=== PATIENT | female | born 1990 | race Asian ===

== ENCOUNTER 2016-05-01 23:57 | Emergency (ER) | payer OTHER ==
[2016-05-02] MEDS ORDERED: Ondansetron INJ* 2 MG/ML VIAL IV ONE (00:30)
[2016-05-02] MEDS ORDERED: NS 0.9% 1000 ML* 1,000 ML IV ONE (00:30)
[2016-05-02] MEDS ORDERED: Al Hydrox/Mg Hydrox/Simet LIQ* 30 ML UDC PO ONE (00:31)
[2016-05-02] MEDS ORDERED: Lidocaine 2% VISCOUS* 15 ML UDC PO ONE (00:31)
[2016-05-02 01:22] LABS: Hematocrit 44 % (35-47); Hemoglobin 14.5 g/dl (12.0-16.0); Mean Corpuscular HGB Conc 33 g/dl (31-36); Mean Corpuscular Hemoglobin 29 pg (27-31); Mean Corpuscular Volume 88 fL (80-97); Mean Platelet Volume 9 um3 (7.4-10.4); Red Blood Count 5.02 10^6/ul (4.0-5.4); Red Cell Distribution Width 13 % (10.5-15); White Blood Count 19.6 10^3/ul (3.5-10.8)
[2016-05-02 01:34] LABS: ALT 22 U/L (7-52); AST 16 U/L (13-39); Albumin 4.5 g/dL (3.2-5.2); Alkaline Phosphatase 43 U/L (34-104); Anion Gap 9 mmol/L (2-11); BUN/Creatinine Ratio 25.9 (8-20); Blood Urea Nitrogen 15 mg/dL (6-24); C Reactive Protein 4.84 mg/L (< 5.00); CO2 Carbon Dioxide 25 mmol/L (22-32); Calcium 9.3 mg/dL (8.6-10.3); Chloride 102 mmol/L (101-111); EGFR African American 160.4 (>60); EGFR Non-African American 124.7 (>60); Globulin 3.2 g/dL (2-4); Glucose 133 mg/dL (70-100); Lipase 25 U/L (11.0-82.0); Potassium 3.8 mmol/L (3.5-5.0); Sodium 136 mmol/L (133-145); Total Protein 7.7 g/dL (6.4-8.9)
--- NOTE | 2016-05-02 01:58 | ED ---
Andrew Johnston Anna, scribed for Alisa Jaffe MD on 05/02/16 at 0051 . Abdominal Pain/Female - HPI Summary HPI Summary: Patient is a 25 y/o female coming to [facility] presenting with intermittent burning epigastric abdominal pain that began at 1830. She ate rice, tofu, and beans at 12:40. Slept from 1400 to 1830, when she awoke with the pain and experienced emesis 4 times. The pain radiates up to her chest. She took an antacid, which did not relieve her symptoms and vomited again. She has additionally experienced nausea, loss of appetite, BOYD (baseline for this season), and dizziness (baseline for this season). Denies fever, chills, diarrhea, constipation, or blood in vomit. She describes the severity of the pain as 7/10 currently, peaking at 9/10. She describes the pain as similar to when she has been heavily drinking, which she only does rarely and has not done in months. No known exposure to anyone sick. Doesnt drink caffeine or regularly take ibuprofen. - History of Current Complaint Chief Complaint: EDAbdPain Stated Complaint: VOMITING/UPSET STOMACH Time Seen by Provider: 05/02/16 00:17 Hx Obtained From: Patient Pain Intensity: 6 Allergies/Adverse Reactions: Allergies Allergy/AdvReac Type Severity Reaction Status Date / Time No Known Allergies Allergy Verified 05/02/16 00:02 PMH/Surg Hx/FS Hx/Imm Hx Previously Healthy: Yes Infectious Disease History: No Infectious Disease History: Reports: Traveled Outside the [place] in Last 30 Days - [place] - Family History Known Family History: Positive: Cardiac Disease - Mother, Diabetes - Father - Social History Occupation: Student - Graduate Lives: Alone Alcohol Use: Rare Hx Substance Use: No Hx Tobacco Use: No Smoking Status (MU): Never Smoked Tobacco Review of Systems Positive: Other - loss of appetite Positive: Chest Pain Positive: Abdominal Pain, Vomiting, Nausea Neurological: Other - dizziness, baseline Positive: Headache - baseline All Other Systems Reviewed And Are Negative: Yes Physical Exam Triage Information Reviewed: Yes Vital Signs On Initial Exam: Initial Vitals Temp Pulse Resp BP Pulse Ox 99.3 F 111 18 133/85 99 05/02/16 00:02 05/02/16 00:02 05/02/16 00:02 05/02/16 00:02 05/02/16 00:02 Vital Signs Reviewed: Yes Appearance: Positive: Well-Appearing, No Pain Distress Skin: Positive: Warm, Skin Color Reflects Adequate Perfusion, Dry Eyes: Positive: EOMI, MICHELLE ENT: Positive: Pharynx normal, TMs normal Neck: Positive: Supple, Nontender Respiratory/Lung Sounds: Positive: Clear to Auscultation, Breath Sounds Present. Negative: Rales, Rhonchi, Wheezes Cardiovascular: Positive: RRR, Other - no gallops. Negative: Murmur, Rub Abdomen Description: Positive: Other: - epigastric tenderness, no rebound. Negative: Distended, Guarding Bowel Sounds: Positive: Present Musculoskeletal: Positive: Strength/ROM Intact. Negative: Edema Left, Edema Right Neurological: Positive: Sensory/Motor Intact, Alert, Oriented to Person Place, Time, CN Intact II-III - II-XII Psychiatric: Positive: Affect/Mood Appropriate Diagnostics - Vital Signs Vital Signs Temp Pulse Resp BP Pulse Ox 05/02/16 00:02 99.3 F 111 18 133/85 99 - Laboratory Lab Results: Lab Results 05/02/16 05/02/16 Range/Units 01:00 01:00 WBC 19.6 H (3.5-10.8) 10^3/ul RBC 5.02 (4.0-5.4) 10^6/ul Hgb 14.5 (12.0-16.0) g/dl Hct 44 (35-47) % MCV 88 (80-97) fL MCH 29 (27-31) pg MCHC 33 (31-36) g/dl RDW 13 (10.5-15) % Plt Count 271 (150-450) 10^3/ul MPV 9 (7.4-10.4) um3 Neut % (Auto) 94.4 H (38-83) % Lymph % (Auto) 2.6 L (25-47) % Bertie % (Auto) 2.5 (1-9) % Eos % (Auto) 0.3 (0-6) % Baso % (Auto) 0.2 (0-2) % Absolute Neuts (auto) 18.5 H (1.5-7.7) 10^3/ul Absolute Lymphs (auto) 0.5 L (1.0-4.8) 10^3/ul Absolute Monos (auto) 0.5 (0-0.8) 10^3/ul Absolute Eos (auto) 0.1 (0-0.6) 10^3/ul Absolute Basos (auto) 0 (0-0.2) 10^3/ul Absolute Nucleated RBC 0.01 10^3/ul Nucleated RBC % 0.1 Sodium 136 (133-145) mmol/L Potassium 3.8 (3.5-5.0) mmol/L Chloride 102 (101-111) mmol/L Carbon Dioxide 25 (22-32) mmol/L Anion Gap 9 (2-11) mmol/L BUN 15 (6-24) mg/dL Creatinine 0.58 (0.51-0.95) mg/dL Est GFR ( Amer) 160.4 (>60) Est GFR (Non-Af Amer) 124.7 (>60) BUN/Creatinine Ratio 25.9 H (8-20) Glucose 133 H (70-100) mg/dL Calcium 9.3 (8.6-10.3) mg/dL Total Bilirubin 0.40 (0.2-1.0) mg/dL AST 16 (13-39) U/L ALT 22 (7-52) U/L Alkaline Phosphatase 43 (34-104) U/L C-Reactive Protein 4.84 (< 5.00) mg/L Total Protein 7.7 (6.4-8.9) g/dL Albumin 4.5 (3.2-5.2) g/dL Globulin 3.2 (2-4) g/dL Albumin/Globulin Ratio 1.4 (1-3) Lipase 25 (11.0-82.0) U/L Beta HCG, Quant < 0.60 mIU/mL Result Diagrams: 05/02/16 01:00 05/02/16 01:00 Lab Statement: Any lab studies that have been ordered have been reviewed, and results considered in the medical decision making process. - EKG 00:37 Cardiac Rate: Tachycardia - 101 bpm EKG Rhythm: Sinus Tachycardia ST Segment: Normal Ectopy: None Re-Evaluation - Re-Evaluation First Eval Re-Evaluation Time: 01:56 Change: Improved - She is feeling much better. Discussed results and plan of care with patient. Patient agrees with plan. Abdominal Pain Fem Course/Dx - Course Course Of Treatment: cbc elevated at 20 likely secondary to emesis. symptoms completely resolved with GI cocktail ordered 2 weeks of nexium at pharmacy - Diagnoses Provider Diagnoses: Gastritis Discharge - Discharge Plan Condition: Stable Disposition: HOME Prescriptions: Esomeprazole Magnesium [Nexium] 40 mg PO QAM #14 gra The documentation as recorded by the Andrew holm Anna accurately reflects the service I personally performed and the decisions made by me, Alisa Jaffe MD.
[2016-05-02 02:48] VITALS: BP 138/71
== END 2016-05-02 02:47 | disposition home or self-care (01) ==
LOC: ED 23:57
DX: K29.70 Gastritis, unspecified, without bleeding (principal)
CPT/HCPCS: 36415; 80053; 83690; 84702; 85025; 86140; 93005; 96360; 96365; 99283; A9270-GY; J2405